=== PATIENT | female | born 1945 | race Caucasian/White ===

== ENCOUNTER 2018-01-14 18:58 | Inpatient (IN) ==
[2018-01-14] MEDS ORDERED: ceFAZolin 2 GM Premix Inj 2 GM/50 ML PIGGYBACK IV.SIG ONE (19:05)
[2018-01-14] MEDS ORDERED: Diphtheria/Tetanus/Pertussis Vaccine Inj 0.5 ML Syringe IM ONE (19:05)
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
[2018-01-14 19:31] LABS: Baso % (Auto) 0.3 % (0.0-2.0); Eos % (Auto) 0.5 % (0.0-4.0); Hematocrit 30.6 % (35.0-46.0); Hemoglobin 10.2 gm/dL (11.6-15.3); Lymph % (Auto) 48.9 % (9.0-44.0); Mean Corpuscular HGB Conc 33.3 % (32.0-36.0); Mean Corpuscular Hemoglobin 32.9 pg (27.0-34.0); Mean Corpuscular Volume 98.8 fL (80.0-100.0); Mean Platelet Volume 9.3 fL (7.0-11.0); Mono # (Auto) 0.4 th/mm3 (0.0-0.9); Neut # (Auto) 3.7 th/mm3 (1.8-7.7); Neut % (Auto) 45.3 % (16.0-70.0); Platelet Count 117 th/mm3 (150-450); White Blood Count 8.2 th/mm3 (4.0-11.0)
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
[2018-01-14] MEDS ORDERED: Sodium Chlor 0.9% Inj 500 ML IV.CONT ONE (19:40)
[2018-01-14] MEDS ORDERED: Normosol-R pH 7.4 Inj 3,000 ML IV.CONT ONE (19:40)
[2018-01-14] MEDS ORDERED: Phenylephrine/NS 1000 MCG/10ML Syringe IV.PUSH ONE (19:40)
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
[2018-01-14 19:50] LABS: Activated Partial Thrombo Time 21.5 sec (24.3-30.1); INR 1.1 Ratio; Prothrombin Time 11.4 sec (9.8-11.6)
--- NOTE | 2018-01-14 19:50 | ED ---
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 (35.0-46.0) % POC Hct (35-46.0) % MCV 93.0 (80.0-100.0) fL MCH 32.5 (27.0-34.0) pg MCHC 35.0 (32.0-36.0) % RDW 14.7 (11.6-17.2) % Plt Count 81 L (150-450) th/mm3 MPV 9.6 (7.0-11.0) fL Prelim Diff (Auto) Slide review pending Neut % (Auto) 80.2 H (16.0-70.0) % Lymph % (Auto) 12.1 (9.0-44.0) % [place] % (Auto) 7.4 (0.0-8.0) % Eos % (Auto) 0.2 (0.0-4.0) % Baso % (Auto) 0.1 (0.0-2.0) % Neut # (Auto) 8.4 H (1.8-7.7) th/mm3 Lymph # (Auto) 1.3 (1.0-4.8) th/mm3 [place] # (Auto) 0.8 (0.0-0.9) th/mm3 Eos # (Auto) 0.0 (0.0-0.4) th/mm3 Baso # (Auto) 0.0 (0.0-0.2) th/mm3 WBC Differential . Diff Scan Auto diff confirmed Seg Neuts % (Manual) (16-70) % Band Neuts % (Manual) (0-6) % Lymphocytes % (Manual) (9-44) % Monocytes % (Manual) (0-8) % Metamyelocytes % (Man) (0-1) % Abs Neuts (Manual) (1.8-7.7) th/mm3 Nucleated RBCs/100 WBC (0-0) /100 WBC Differential Comment . Platelet Estimate Low L (Normal) Platelet Morphology Normal (Normal) PT 11.0 (9.8-11.6) sec INR 1.1 Ratio APTT 24.8 D (24.3-30.1) sec Fibrinogen 214 L (227-377) mg/dL Puncture Site Art line Patient Temperature 98.6 O2 Saturation 96 (90-100) % ABG pH 7.42 (7.380-7.420) ABG pCO2 43 H (38-42) mmHg ABG pO2 110 (61-120) mmHG ABG HCO3 27 H (22-26) mmol/L ABG O2 Content 17.0 (12.0-20.0) Vol % ABG Base Excess 2.7 H (-2-2) mmol/L ABG Methemoglobin 1.2 (0-2) % Hemoglobin 12.5 (12.0-16.0) G/DL Carboxyhemoglobin 1.7 (0-4) % O2 Delivery Device Ventilator Vent Setting 16/400/6peep Inspired O2 40 % Critical Value No POC Sodium (137-144) mmol/L Sodium (136-145) meq/L POC Potassium (3.6-5.0) mmol/L Potassium (3.5-5.1) meq/L POC Chloride (102-111) mmol/L Chloride (98-107) meq/L Carbon Dioxide (21.0-32.0) meq/L Anion Gap (5-15) meq/L POC BUN (5-21) mg/dL BUN (7-18) mg/dL Creatinine (0.50-1.00) mg/dL POC Creatinine (0.6-1.3) mg/dL Estimated GFR (>89) mL/min POC Glucose (68-110) mg/dL Random Glucose (74-106) mg/dL Calcium (8.5-10.1) mg/dL Prot Corrected Calcium (8.5-10.1) mg/dL Total Bilirubin (0.2-1.0) mg/dL AST (15-37) U/L ALT (10-53) U/L Alkaline Phosphatase (45-117) U/L Total Protein (6.4-8.2) g/dL Albumin (3.4-5.0) g/dL Nasal Screen MRSA (PCR) (Negative) Blood Type Antibody Screen MTS Gel Crossmatch Blood Bank Comment Bld Prod Order Comment 01/16/18 01/16/18 Range/Units 05:30 05:38 WBC (4.0-11.0) th/mm3 RBC (4.00-5.30) mil/mm3 Hgb (11.6-15.3) gm/dL POC Hgb (Calc) (11.6-15.3) g/dL Hct (35.0-46.0) % POC Hct (35-46.0) % MCV (80.0-100.0) fL MCH (27.0-34.0) pg MCHC (32.0-36.0) % RDW (11.6-17.2) % Plt Count (150-450) th/mm3 MPV (7.0-11.0) fL Prelim Diff (Auto) Neut % (Auto) (16.0-70.0) % Lymph % (Auto) (9.0-44.0) % [place] % (Auto) (0.0-8.0) % Eos % (Auto) (0.0-4.0) % Baso % (Auto) (0.0-2.0) % Neut # (Auto) (1.8-7.7) th/mm3 Lymph # (Auto) (1.0-4.8) th/mm3 [place] # (Auto) (0.0-0.9) th/mm3 Eos # (Auto) (0.0-0.4) th/mm3 Baso # (Auto) (0.0-0.2) th/mm3 WBC Differential Diff Scan Seg Neuts % (Manual) (16-70) % Band Neuts % (Manual) (0-6) % Lymphocytes % (Manual) (9-44) % Monocytes % (Manual) (0-8) % Metamyelocytes % (Man) (0-1) % Abs Neuts (Manual) (1.8-7.7) th/mm3 Nucleated RBCs/100 WBC (0-0) /100 WBC Differential Comment Platelet Estimate (Normal) Platelet Morphology (Normal) PT (9.8-11.6) sec INR Ratio APTT (24.3-30.1) sec Fibrinogen (227-377) mg/dL Puncture Site Art line Patient Temperature 98.6 O2 Saturation 94 (90-100) % ABG pH 7.45 H (7.380-7.420) ABG pCO2 37 L (38-42) mmHg ABG pO2 79 (61-120) mmHG ABG HCO3 26 (22-26) mmol/L ABG O2 Content 14.2 (12.0-20.0) Vol % ABG Base Excess 1.9 (-2-2) mmol/L ABG Methemoglobin 1.2 (0-2) % Hemoglobin 10.7 L (12.0-16.0) G/DL Carboxyhemoglobin 1.5 (0-4) % O2 Delivery Device Ventilator Vent Setting 16/400/peep 6 Inspired O2 35 % Critical Value No POC Sodium (137-144) mmol/L Sodium 143 (136-145) meq/L POC Potassium (3.6-5.0) mmol/L Potassium 3.2 L (3.5-5.1) meq/L POC Chloride (102-111) mmol/L Chloride 109 H (98-107) meq/L Carbon Dioxide 25.2 (21.0-32.0) meq/L Anion Gap 9 (5-15) meq/L POC BUN (5-21) mg/dL BUN 16 (7-18) mg/dL Creatinine 0.47 L (0.50-1.00) mg/dL POC Creatinine (0.6-1.3) mg/dL Estimated GFR Greater than 89 (>89) mL/min POC Glucose (68-110) mg/dL Random Glucose 109 H (74-106) mg/dL Calcium 7.4 L* (8.5-10.1) mg/dL Prot Corrected Calcium 8.4 L (8.5-10.1) mg/dL Total Bilirubin 1.1 H (0.2-1.0) mg/dL AST 99 H (15-37) U/L ALT 69 H (10-53) U/L Alkaline Phosphatase 51 (45-117) U/L Total Protein 5.3 L D (6.4-8.2) g/dL Albumin 2.5 L D (3.4-5.0) g/dL Nasal Screen MRSA (PCR) (Negative) Blood Type Antibody Screen MTS Gel Crossmatch Blood Bank Comment Bld Prod Order Comment Imaging Data Radiologist's impression: Chest X-Ray 01/14/18 00:00 CONCLUSION: Endotracheal tube and NG tube in good position. Basilar and dependent opacity, probably atelectasis. Left central line overlies right atrium without visible pneumothorax. Chest X-Ray 01/14/18 19:00 CONCLUSION: Suboptimal exam but no acute traumatic injury identified on plain film. Mild basilar atelectasis. Pelvis X-Ray 01/14/18 19:00 CONCLUSION: No acute bony abnormality identified on limited trauma exam. Abdomen/Pelvis CT 01/14/18 19:04 CONCLUSION: 1. Severely fractured spleen with small amount of active extravasation inferiorly. Mild hemoperitoneum. 2. Questionable liver cirrhosis. Multiple gallstones. Multiple liver cysts. 3. No acute bony abnormalities within the abdomen. See chest CT report. Cervical Spine CT 01/14/18 19:04 CONCLUSION: 1. No acute findings on cervical spine CT. Chest CT 01/14/18 19:04 CONCLUSION: 1. Bilateral lower anterior rib fractures with very tiny bilateral pneumothoraces. Minimal dependent atelectasis in the lungs. 2. Positive pericardial effusion as above. Cannot exclude pericardial hemorrhage. No traumatic aortic injury identified. Findings discussed with Dr. Baker. Head CT 01/14/18 19:04 CONCLUSION: 1. No acute intracranial abnormality. Practically interesting trauma surgery service . Chest X-Ray 01/15/18 05:44 CONCLUSION: Mild parenchymal consolidation at the lung bases not significantly changed from last night. Lines and tubes as above. Chest X-Ray 01/16/18 06:00 CONCLUSION: No significant change. Basilar predominant airspace opacities persist. Discharge Plan Discharge Disposition Patient Disposition: 30 Still Patient Discharge Details Diagnosis: Major laceration of spleen Physicians Team ED Provider: Lisa Estrada Primary Care Provider: UNKNOWN, Attending Provider: Arnav Baker Other Providers: Perfecto Collins ; Marko Todd ; [employer] ; Arnav Baker ; Ally Gonzalez F ; Jj Bell S ; Lakeisha Munson ; Sly Carrillo ; Flaquita Nayak Status ED Status: Left Department Discharge Information Discharge Date/Time: 01/14/18 20:32
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
[2018-01-14 20:32] LABS: ABG Base Excess -8.6 mmol/L (-2-2); ABG PCO2 42 mmHg (38-42); ABG PO2 377 mmHG (61-120)
[2018-01-14] MEDS ORDERED: Sodium Bicarbonate 8.4% Inj 50 MEQ/50 ML Syringe ONE ×2 (20:35)
[2018-01-14] MEDS ORDERED: Calcium Chloride Inj 1 GM/10 ML Syringe ONE ×2 (20:35→22:29)
[2018-01-14 20:50] LABS: Baso # (Auto) 0.1 th/mm3 (0.0-0.2); Baso % (Auto) 0.9 % (0.0-2.0); Eos % (Auto) 0.1 % (0.0-4.0); Hematocrit 27.3 % (35.0-46.0); Hemoglobin 9.3 gm/dL (11.6-15.3); Lymph # (Auto) 1.4 th/mm3 (1.0-4.8); Lymph % (Auto) 14.5 % (9.0-44.0); Mean Corpuscular HGB Conc 34.2 % (32.0-36.0); Mean Corpuscular Hemoglobin 32.8 pg (27.0-34.0); Mean Corpuscular Volume 95.9 fL (80.0-100.0); Mean Platelet Volume 9.1 fL (7.0-11.0); Mono # (Auto) 0.4 th/mm3 (0.0-0.9); Mono % (Auto) 3.7 % (0.0-8.0); Neut % (Auto) 80.8 % (16.0-70.0); Platelet Count 70 th/mm3 (150-450); Red Blood Count 2.84 mil/mm3 (4.00-5.30); Red Cell Distribution Width 13.5 % (11.6-17.2)
[2018-01-14 21:05] LABS: Activated Partial Thrombo Time 36.4 sec (24.3-30.1); INR 1.4 Ratio
[2018-01-14 21:23] LABS: Calcium 5.2 mg/dL (8.5-10.1); Carbon Dioxide 21.3 meq/L (21.0-32.0)
[2018-01-14 21:34] LABS: Total Protein 3.6 g/dL (6.4-8.2)
[2018-01-14 21:41] LABS: ABG PCO2 34 mmHg (38-42); ABG PO2 233 mmHG (61-120)
[2018-01-14 21:46] LABS: Hematocrit 33.2 % (35.0-46.0); Hemoglobin 11.6 gm/dL (11.6-15.3); Mean Corpuscular HGB Conc 34.9 % (32.0-36.0); Mean Corpuscular Hemoglobin 33.3 pg (27.0-34.0); Mean Corpuscular Volume 95.2 fL (80.0-100.0); Mean Platelet Volume 8.4 fL (7.0-11.0); Platelet Count 83 th/mm3 (150-450); Red Blood Count 3.49 mil/mm3 (4.00-5.30); Red Cell Distribution Width 14.4 % (11.6-17.2); White Blood Count 8.9 th/mm3 (4.0-11.0)
[2018-01-14] MEDS ORDERED: Acetaminophen 325 MG Tablet PO PRN (22:04)
[2018-01-14] MEDS ORDERED: Post-op Orders (for Pharmacy) OTHER ONE (22:04)
[2018-01-14] MEDS ORDERED: Naloxone Inj 0.4 MG/ML Vial IV.PUSH PRN (22:04)
[2018-01-14] MEDS ORDERED: fentaNYL 10 mcg/mL Premix Drip 2,500 MCG/250 ML BAG IV.SIG PRN (22:06)
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
[2018-01-14] MEDS ORDERED: fentaNYL Citrate Inj 100 MCG/2 ML Ampul ONE (22:29)
[2018-01-14] MEDS ORDERED: Propofol Inj 500 MG/50 ML Vial ONE (22:41)
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
[2018-01-14] MEDS: Propofol 1000 mg/100 ml Inj 1,000 MG/100 ML BOTTLE IV.CONT PRN (22:59)
[2018-01-14] MEDS: Pantoprazole Inj 40 MG Vial IV.PUSH SCH (23:01)
[2018-01-14] MEDS: fentaNYL 10 mcg/mL Premix Drip 2,500 MCG/250 ML BAG IV.SIG PRN (23:02)
[2018-01-14] MEDS: Sod Chloride 0.9% Inj 1,000 ML IV.CONT SCH (23:03)
[2018-01-15 00:06] LABS: ABG Base Excess 0.9 mmol/L (-2-2); ABG PCO2 52 mmHg (38-42); ABG PO2 164 mmHg (61-120)
[2018-01-15 00:10] LABS: Baso % (Auto) 0.3 % (0.0-2.0); Hematocrit 38.4 % (35.0-46.0); Hemoglobin 13.5 gm/dL (11.6-15.3); Lymph # (Auto) 0.8 th/mm3 (1.0-4.8); Lymph % (Auto) 10.3 % (9.0-44.0); Mean Corpuscular HGB Conc 35.1 % (32.0-36.0); Mean Corpuscular Hemoglobin 32.6 pg (27.0-34.0); Mean Corpuscular Volume 92.9 fL (80.0-100.0); Mean Platelet Volume 8.3 fL (7.0-11.0); Mono # (Auto) 0.3 th/mm3 (0.0-0.9); Mono % (Auto) 3.7 % (0.0-8.0); Neut % (Auto) 85.7 % (16.0-70.0); Platelet Count 89 th/mm3 (150-450); Red Blood Count 4.13 mil/mm3 (4.00-5.30); Red Cell Distribution Width 14.8 % (11.6-17.2); White Blood Count 8.1 th/mm3 (4.0-11.0)
[2018-01-15 00:38] LABS: INR 1.1 Ratio; Prothrombin Time 11.5 sec (9.8-11.6)
[2018-01-15 00:44] LABS: Alanine Aminotransferase 109 U/L (10-53); Albumin 3.2 g/dL (3.4-5.0); Alkaline Phosphatase 60 U/L (45-117); Anion Gap 8 meq/L (5-15); Aspartate Aminotransferase 160 U/L (15-37); Blood Urea Nitrogen 20 mg/dL (7-18); Calcium 8.5 mg/dL (8.5-10.1); Carbon Dioxide 27.7 meq/L (21.0-32.0); Chloride 109 meq/L (98-107); Glomerular Filtration Rate 64 mL/min (>89); Glucose,Random 140 mg/dL (74-106); Sodium 145 meq/L (136-145)
[2018-01-15 00:46] LABS: Potassium 3.4 meq/L (3.5-5.1)
[2018-01-15 01:45] LABS: Lymphocytes 8 % (9-44); Metamyelocytes 1 % (0-1); Monocytes 4 % (0-8); Tallied Nucleated RBC 1 (0-0)
[2018-01-15 01:46] LABS: Platelet Morphology Normal (Normal)
[2018-01-15] MEDS: ceFAZolin Inj 1,000 MG in Sodium Chlor 0.9% Inj 100 ML IV.SIG SCH ×2 (04:05→12:41)
[2018-01-15] MEDS ORDERED: Magnesium Oxide 400 MG Tablet PO PRN (05:39)
[2018-01-15] MEDS ORDERED: Sodium Phosphate Inj 30 MMOL in Sodium Chlor 0.9% Inj 250 ML IV.SIG PRN (05:39)
[2018-01-15] MEDS ORDERED: Potassium Phosphate 500 MG Soluble Tablet PO PRN ×2 (05:39)
[2018-01-15] MEDS ORDERED: Magnesium Sulfate Inj 4 GM in Sodium Chlor 0.9% Inj 92 ML IV.SIG PRN (05:39)
[2018-01-15] MEDS ORDERED: Potassium Chlor 20 mEq Premix 20 MEQ/100 ML PIGGYBACK IV.SIG PRN (05:39)
[2018-01-15] MEDS ORDERED: Potassium Chlor 40 mEq Premix 40 MEQ/100 ML PIGGYBACK IV.SIG PRN (05:39)
[2018-01-15] MEDS ORDERED: Magnesium Sulfate Inj 2 GM in Sodium Chlor 0.9% Inj 96 ML IV.SIG PRN (05:39)
[2018-01-15] MEDS ORDERED: Potassium Phosphate Inj 30 MMOL in Sodium Chlor 0.9% Inj 250 ML IV.SIG PRN (05:39)
[2018-01-15 05:53] LABS: Baso % (Auto) 0.1 % (0.0-2.0); Hemoglobin 12.4 gm/dL (11.6-15.3); Lymph # (Auto) 0.6 th/mm3 (1.0-4.8); Lymph % (Auto) 6.9 % (9.0-44.0); Mean Corpuscular HGB Conc 35.3 % (32.0-36.0); Mean Corpuscular Hemoglobin 33.1 pg (27.0-34.0); Mean Corpuscular Volume 93.8 fL (80.0-100.0); Mean Platelet Volume 8.7 fL (7.0-11.0); Mono # (Auto) 0.4 th/mm3 (0.0-0.9); Mono % (Auto) 5.3 % (0.0-8.0); Neut # (Auto) 7.2 th/mm3 (1.8-7.7); Neut % (Auto) 87.7 % (16.0-70.0); Platelet Count 84 th/mm3 (150-450); Red Blood Count 3.74 mil/mm3 (4.00-5.30); Red Cell Distribution Width 14.7 % (11.6-17.2); White Blood Count 8.2 th/mm3 (4.0-11.0)
[2018-01-15 06:03] LABS: Activated Partial Thrombo Time 24.8 sec (24.3-30.1); INR 1.1 Ratio
[2018-01-15 06:12] LABS: ABG Base Excess 2.7 mmol/L (-2-2); ABG PCO2 43 mmHg (38-42); ABG PO2 110 mmHg (61-120)
[2018-01-15 06:23] LABS: Calcium 7.6 mg/dL (8.5-10.1); Carbon Dioxide 28.2 meq/L (21.0-32.0); Potassium 3.5 meq/L (3.5-5.1)
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
[2018-01-15 07:41] LABS: Lymphocytes 8 % (9-44); Monocytes 2 % (0-8)
[2018-01-15 07:42] LABS: Platelet Morphology Normal (Normal)
[2018-01-15] MEDS: Sod Chloride 0.9% Inj 1,000 ML IV.CONT SCH ×2 (08:30→12:38)
[2018-01-15] MEDS: Propofol 1000 mg/100 ml Inj 1,000 MG/100 ML BOTTLE IV.CONT PRN (08:30)
[2018-01-15] MEDS: Chlorhexidine 0.12% Oral Kit 15 ML UDC OROPHARYNG SCH ×2 (08:30→21:24)
[2018-01-15] MEDS ORDERED: [UNRECOGNIZED DRUG - REMARK] OTHER ONE (11:00)
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
[2018-01-15] MEDS: Potassium Chloride 25 MEQ Effervescent Tablet PO PRN (12:37)
[2018-01-15] MEDS: Metoprolol Inj 5 MG/5 ML Vial IV.PUSH SCH ×2 (12:39→17:19)
[2018-01-15] MEDS: Oral Hygiene Kit OROPHARYNG SCH ×2 (12:39→16:04)
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
--- NOTE | 2018-01-15 14:36 | ECG ---
Date Performed: 01/14/2018 Time Performed: 22:24:15 PTAGE: 89 years EKG: SINUS BRADYCARDIA RIGHT BUNDLE BRANCH BLOCK ABNORMAL ECG NO PREVIOUS TRACING DOCTOR: Modesto Faye Interpretating Date/Time 01/15/2018 14:35:25
[2018-01-15] MEDS: fentaNYL 10 mcg/mL Premix Drip 2,500 MCG/250 ML BAG IV.SIG PRN (15:41)
[2018-01-15] MEDS ORDERED: ceFAZolin 1 GM Premix Inj 1 GM/50 ML FROZ.PIGGY IV.SIG SCH (20:00)
[2018-01-15] MEDS: Pantoprazole Inj 40 MG Vial IV.PUSH SCH (22:01)
[2018-01-16] MEDS: Sod Chloride 0.9% Inj 1,000 ML IV.CONT SCH ×2 (01:19→13:35)
[2018-01-16] MEDS: Metoprolol Inj 5 MG/5 ML Vial IV.PUSH SCH ×4 (01:20→18:27)
[2018-01-16] MEDS: Oral Hygiene Kit OROPHARYNG SCH ×4 (01:20→15:45)
[2018-01-16] MEDS: fentaNYL 10 mcg/mL Premix Drip 2,500 MCG/250 ML BAG IV.SIG PRN (02:06)
[2018-01-16 06:00] LABS: Baso % (Auto) 0.1 % (0.0-2.0); Eos % (Auto) 0.2 % (0.0-4.0); Hemoglobin 11.2 gm/dL (11.6-15.3); Lymph # (Auto) 1.3 th/mm3 (1.0-4.8); Lymph % (Auto) 12.1 % (9.0-44.0); Mean Corpuscular Hemoglobin 32.5 pg (27.0-34.0); Mean Platelet Volume 9.6 fL (7.0-11.0); Mono # (Auto) 0.8 th/mm3 (0.0-0.9); Mono % (Auto) 7.4 % (0.0-8.0); Neut # (Auto) 8.4 th/mm3 (1.8-7.7); Neut % (Auto) 80.2 % (16.0-70.0); Platelet Count 81 th/mm3 (150-450); Red Blood Count 3.44 mil/mm3 (4.00-5.30); Red Cell Distribution Width 14.7 % (11.6-17.2); White Blood Count 10.5 th/mm3 (4.0-11.0)
[2018-01-16 06:06] LABS: ABG Base Excess 1.9 mmol/L (-2-2); ABG PCO2 37 mmHg (38-42); ABG PO2 79 mmHg (61-120)
[2018-01-16 06:06] LABS: Alanine Aminotransferase 69 U/L (10-53); Albumin 2.5 g/dL (3.4-5.0); Alkaline Phosphatase 51 U/L (45-117); Anion Gap 9 meq/L (5-15); Aspartate Aminotransferase 99 U/L (15-37); Blood Urea Nitrogen 16 mg/dL (7-18); Calcium 7.4 mg/dL (8.5-10.1); Carbon Dioxide 25.2 meq/L (21.0-32.0); Chloride 109 meq/L (98-107); Glomerular Filtration Rate Greater Than 89 mL/min (>89); Glucose,Random 109 mg/dL (74-106); Potassium 3.2 meq/L (3.5-5.1); Sodium 143 meq/L (136-145); Total Protein 5.3 g/dL (6.4-8.2)
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
[2018-01-16 07:51] LABS: Platelet Morphology Normal (Normal)
[2018-01-16] MEDS: Chlorhexidine 0.12% Oral Kit 15 ML UDC OROPHARYNG SCH ×2 (09:02→20:55)
[2018-01-16] MEDS: Potassium Chlor 40 mEq Premix 40 MEQ/100 ML PIGGYBACK IV.SIG PRN ×2 (10:51→15:44)
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
[2018-01-16] MEDS: Pantoprazole Inj 40 MG Vial IV.PUSH SCH (23:02)
[2018-01-17] MEDS: Metoprolol Inj 5 MG/5 ML Vial IV.PUSH SCH ×4 (00:54→17:10)
[2018-01-17] MEDS: Oral Hygiene Kit OROPHARYNG SCH ×2 (00:55→04:10)
[2018-01-17] MEDS: Sod Chloride 0.9% Inj 1,000 ML IV.CONT SCH ×2 (01:47→12:34)
[2018-01-17 05:14] LABS: Baso # (Auto) 0.1 th/mm3 (0.0-0.2); Baso % (Auto) 0.4 % (0.0-2.0); Eos % (Auto) 0.1 % (0.0-4.0); Hematocrit 30.2 % (35.0-46.0); Hemoglobin 10.3 gm/dL (11.6-15.3); Lymph # (Auto) 0.9 th/mm3 (1.0-4.8); Lymph % (Auto) 6.1 % (9.0-44.0); Mean Corpuscular HGB Conc 34.1 % (32.0-36.0); Mean Corpuscular Volume 93.8 fL (80.0-100.0); Mean Platelet Volume 9.7 fL (7.0-11.0); Mono % (Auto) 6.7 % (0.0-8.0); Neut # (Auto) 12.7 th/mm3 (1.8-7.7); Neut % (Auto) 86.7 % (16.0-70.0); Platelet Count 83 th/mm3 (150-450); Red Blood Count 3.23 mil/mm3 (4.00-5.30); Red Cell Distribution Width 14.5 % (11.6-17.2); White Blood Count 14.6 th/mm3 (4.0-11.0)
[2018-01-17 05:36] LABS: Albumin 2.5 g/dL (3.4-5.0); Anion Gap 7 meq/L (5-15); Aspartate Aminotransferase 83 U/L (15-37); Blood Urea Nitrogen 14 mg/dL (7-18); Calcium 7.6 mg/dL (8.5-10.1); Carbon Dioxide 25.9 meq/L (21.0-32.0); Chloride 108 meq/L (98-107); Glomerular Filtration Rate Greater Than 89 mL/min (>89); Glucose,Random 106 mg/dL (74-106); Potassium 3.5 meq/L (3.5-5.1); Sodium 141 meq/L (136-145)
[2018-01-17 05:39] LABS: Alanine Aminotransferase 63 U/L (10-53); Alkaline Phosphatase 51 U/L (45-117); Total Protein 5.5 g/dL (6.4-8.2)
[2018-01-17] MEDS: Potassium Chloride 25 MEQ Effervescent Tablet PO PRN (05:56)
--- NOTE | 2018-01-17 06:22 | XR ---
EXAM DATE: 01/17/2018 6:06 AM EDT AGE/SEX: 73 years / Female INDICATIONS: Shortness of breath. CLINICAL DATA: This is the patient's subsequent encounter. Patient reports that signs and symptoms h ave been present for 3 days and indicates a pain score of Nonresponsive. MEDICAL/SURGICAL HISTORY: Non-responsive. Non-responsive. [place] [facility] [place]. . FINDINGS: Bibasilar consolidation and small pleural effusions are without significant change. No pneumothorax. Subcentimeter granulomas and calcified hilar lymph nodes again noted on the right. Stable heart size, upper limits of normal. Endotracheal tube tip is approximately 3.5 cm above the christian. There is a nasogastric tube coursing into the stomach. Left subclavian central venous catheter with tip in the right atrium unchanged. CONCLUSION: No significant change. Electronically signed by: Philip Robertson MD 01/17/2018 6:21 AM EDT
[2018-01-17 06:28] LABS: ABG Base Excess -0.3 mmol/L (-2-2); ABG PCO2 35 mmHg (38-42); ABG PO2 133 mmHg (61-120)
[2018-01-17 07:28] LABS: Eosinophils 1 % (0-4); Lymphocytes 3 % (9-44); Monocytes 4 % (0-8); Spherocytes Occ
[2018-01-17 07:29] LABS: Platelet Morphology Normal (Normal)
[2018-01-17] MEDS: Chlorhexidine 0.12% Oral Kit 15 ML UDC OROPHARYNG SCH (09:04)
[2018-01-17] MEDS: Heparin - SQ 10,000 UNITS/ML Vial SQ SCH ×2 (10:10→20:26)
[2018-01-17] MEDS: Senna/Docusate Sodium 8.6/50 MG Tablet PO SCH ×2 (10:11→20:26)
[2018-01-17] MEDS ORDERED: RESP: Racemic Epinephrine 2.25% 0.5 ML Neb NEB PRN (11:00)
[2018-01-17] MEDS: Lidocaine 5% Patch T-DERMAL SCH (12:33)
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
[2018-01-17] MEDS: Pantoprazole Inj 40 MG Vial IV.PUSH SCH (23:48)
[2018-01-18] MEDS: Metoprolol Inj 5 MG/5 ML Vial IV.PUSH SCH ×3 (00:39→12:14)
[2018-01-18 04:19] LABS: Baso % (Auto) 0.2 % (0.0-2.0); Eos % (Auto) 0.2 % (0.0-4.0); Hematocrit 32.6 % (35.0-46.0); Hemoglobin 11.4 gm/dL (11.6-15.3); Lymph # (Auto) 0.8 th/mm3 (1.0-4.8); Lymph % (Auto) 6.4 % (9.0-44.0); Mean Corpuscular HGB Conc 35.1 % (32.0-36.0); Mean Corpuscular Hemoglobin 32.1 pg (27.0-34.0); Mean Corpuscular Volume 91.4 fL (80.0-100.0); Mean Platelet Volume 9.7 fL (7.0-11.0); Mono # (Auto) 0.9 th/mm3 (0.0-0.9); Mono % (Auto) 7.3 % (0.0-8.0); Neut # (Auto) 10.2 th/mm3 (1.8-7.7); Neut % (Auto) 85.9 % (16.0-70.0); Platelet Count 114 th/mm3 (150-450); Red Blood Count 3.57 mil/mm3 (4.00-5.30); Red Cell Distribution Width 14.3 % (11.6-17.2); White Blood Count 11.8 th/mm3 (4.0-11.0)
[2018-01-18 04:44] LABS: Anion Gap 11 meq/L (5-15); Blood Urea Nitrogen 14 mg/dL (7-18); Calcium 8.1 mg/dL (8.5-10.1); Carbon Dioxide 24.8 meq/L (21.0-32.0); Chloride 101 meq/L (98-107); Glomerular Filtration Rate Greater Than 89 mL/min (>89); Glucose,Random 85 mg/dL (74-106); Potassium 3.2 meq/L (3.5-5.1); Sodium 137 meq/L (136-145)
--- NOTE | 2018-01-18 06:11 | XR ---
EXAM DATE: 01/18/2018 5:56 AM EDT AGE/SEX: 73 years / Female INDICATIONS: Shortness of breath CLINICAL DATA: This is the patient's subsequent encounter. Patient reports that signs and symptoms h ave been present for 4 - 6 days and indicates a pain score of 0/10. MEDICAL/SURGICAL HISTORY: None. None. COMPARISON: [facility] – [place], CHEST 1V SINGLE AP, 01/17/2018. . FINDINGS: Left greater than right basilar consolidation and small effusions again noted and not significantly c hanged. No pneumothorax. Heart size stable, within normal limits. Old granulomatous changes are again seen. Patient has been extubated. Nasogastric tube also out. The left subclavian line seen previously has a lso been removed. CONCLUSION: * Mild consolidation and small effusions at each base not significantly changed. * Endotracheal tube, nasogastric tube and left subclavian line have all been removed. Electronically signed by: Philip Robertson MD 01/18/2018 6:10 AM EDT
[2018-01-18] MEDS: Heparin - SQ 10,000 UNITS/ML Vial SQ SCH ×2 (08:31→20:35)
[2018-01-18] MEDS: Potassium Chlor 20 mEq Premix 20 MEQ/100 ML PIGGYBACK IV.SIG PRN ×3 (08:32→12:44)
[2018-01-18] MEDS: Senna/Docusate Sodium 8.6/50 MG Tablet PO SCH ×2 (08:33→20:35)
[2018-01-18] MEDS: Lidocaine 5% Patch T-DERMAL SCH (08:33)
[2018-01-18] MEDS: Sod Chloride 0.9% Inj 1,000 ML IV.CONT SCH (08:35)
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
[2018-01-18 15:08] LABS: Bacteria,Urine Rare /hpf; Bilirubin,Urine Negative (Negative); Clarity,Urine Clear (Clear); Color,Urine Yellow (Yellw/Straw); Glucose,Urine (UA) Negative (Negative); Leukocyte Esterase,Urine Negative (Negative); Nitrite,Urine Negative (Negative); Specific Gravity,Urine 1.012 (1.002-1.035)
[2018-01-18] MEDS: Metoprolol Tartrate 25 MG Tablet PO SCH (20:35)
[2018-01-18] MEDS: Pantoprazole Inj 40 MG Vial IV.PUSH SCH (22:34)
[2018-01-19 06:21] LABS: Anion Gap 9 meq/L (5-15); Blood Urea Nitrogen 20 mg/dL (7-18); Calcium 8.6 mg/dL (8.5-10.1); Carbon Dioxide 27.5 meq/L (21.0-32.0); Chloride 102 meq/L (98-107); Glomerular Filtration Rate Greater Than 89 mL/min (>89); Glucose,Random 120 mg/dL (74-106); Potassium 3.7 meq/L (3.5-5.1); Sodium 138 meq/L (136-145)
[2018-01-19 06:46] LABS: Baso % (Auto) 0.2 % (0.0-2.0); Eos % (Auto) 0.5 % (0.0-4.0); Hematocrit 37.5 % (35.0-46.0); Hemoglobin 12.2 gm/dL (11.6-15.3); Lymph # (Auto) 0.8 th/mm3 (1.0-4.8); Lymph % (Auto) 9.5 % (9.0-44.0); Mean Corpuscular HGB Conc 32.4 % (32.0-36.0); Mean Corpuscular Hemoglobin 32.9 pg (27.0-34.0); Mean Corpuscular Volume 101.6 fL (80.0-100.0); Mean Platelet Volume 9.6 fL (7.0-11.0); Mono # (Auto) 0.8 th/mm3 (0.0-0.9); Mono % (Auto) 9.6 % (0.0-8.0); Neut # (Auto) 6.6 th/mm3 (1.8-7.7); Neut % (Auto) 80.2 % (16.0-70.0); Platelet Count 147 th/mm3 (150-450); Red Blood Count 3.69 mil/mm3 (4.00-5.30); Red Cell Distribution Width 14.9 % (11.6-17.2); White Blood Count 8.2 th/mm3 (4.0-11.0)
[2018-01-19] MEDS: Lidocaine 5% Patch T-DERMAL SCH (09:00)
[2018-01-19] MEDS: Metoprolol Tartrate 25 MG Tablet PO SCH ×2 (09:00→21:00)
[2018-01-19] MEDS: Senna/Docusate Sodium 8.6/50 MG Tablet PO SCH ×2 (09:01→21:00)
[2018-01-19] MEDS: Heparin - SQ 10,000 UNITS/ML Vial SQ SCH ×2 (09:01→20:59)
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
[2018-01-19] MEDS: Pantoprazole Inj 40 MG Vial IV.PUSH SCH (23:28)
[2018-01-20 05:59] LABS: Baso % (Auto) 0.4 % (0.0-2.0); Eos # (Auto) 0.1 th/mm3 (0.0-0.4); Eos % (Auto) 0.9 % (0.0-4.0); Hematocrit 35.6 % (35.0-46.0); Hemoglobin 12.7 gm/dL (11.6-15.3); Lymph # (Auto) 1.4 th/mm3 (1.0-4.8); Lymph % (Auto) 18.1 % (9.0-44.0); Mean Corpuscular HGB Conc 35.6 % (32.0-36.0); Mean Corpuscular Hemoglobin 33.1 pg (27.0-34.0); Mean Platelet Volume 9.8 fL (7.0-11.0); Mono % (Auto) 12.9 % (0.0-8.0); Neut # (Auto) 5.3 th/mm3 (1.8-7.7); Neut % (Auto) 67.7 % (16.0-70.0); Platelet Count 184 th/mm3 (150-450); Red Blood Count 3.83 mil/mm3 (4.00-5.30); Red Cell Distribution Width 13.8 % (11.6-17.2); White Blood Count 7.9 th/mm3 (4.0-11.0)
[2018-01-20 06:09] LABS: Anion Gap 8 meq/L (5-15); Blood Urea Nitrogen 22 mg/dL (7-18); Calcium 8.6 mg/dL (8.5-10.1); Carbon Dioxide 30.2 meq/L (21.0-32.0); Chloride 100 meq/L (98-107); Glomerular Filtration Rate Greater Than 89 mL/min (>89); Glucose,Random 124 mg/dL (74-106); Potassium 3.7 meq/L (3.5-5.1); Sodium 138 meq/L (136-145)
--- NOTE | 2018-01-20 06:35 | P.DCO ---
- Physical Therapy Order: Evaluate and treat, Improve ambulation, Strength and gait training - Home Health Nursing Order: Nursing assessment with vital signs - Case Management Consult Yes - Certification I have seen patient Loree Allen on 01/20/18. My clinical findings support the need for the requested home health care services because: Deconditioned with increased weakness I certify that my clinical findings support that this patient is homebound because: Post-op weakness, Unsteady gait/balance
[2018-01-20 08:25] VITALS: RESP 18
[2018-01-20] MEDS: Lidocaine 5% Patch T-DERMAL SCH (09:07)
[2018-01-20] MEDS: Senna/Docusate Sodium 8.6/50 MG Tablet PO SCH (09:07)
[2018-01-20] MEDS: Heparin - SQ 10,000 UNITS/ML Vial SQ SCH (09:07)
[2018-01-20] MEDS ORDERED: Influenza (Quadrivalent) Vaccine 0.5 ML Syringe IM ONE (10:00)
[2018-01-20] MEDS ORDERED: Pneumococcal-23 Polyvalent Vaccine Inj 25 MCG/0.5 ML Syringe IM ONE (12:00)
[2018-01-20 12:07] LABS: Spherocytes Occ
[2018-01-20 12:12] VITALS: BP 130/64; PULSE 90; TEMP 98.4; O2SAT 93
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
--- NOTE | 2018-02-02 18:08 | MP ---
cc: Arnav Baker MD DATE OF OPERATION: 01/14/2018 PREOPERATIVE DIAGNOSIS: Laceration to the spleen. POSTOPERATIVE DIAGNOSIS: Laceration to the spleen. PROCEDURE PERFORMED: Exploratory laparotomy with splenectomy. SURGEON: Arnav Baker MD ANESTHESIA: General endotracheal anesthesia. ESTIMATED BLOOD LOSS: 1 liter. FINDINGS: Laceration to the spleen with hemoperitoneum. No evidence of bowel injury. SPECIMENS: Spleen. COMPLICATIONS: None. DESCRIPTION OF PROCEDURE: The patient was brought to the operating room, placed on the operating table in supine position. Bilateral sequential inflation devices placed on the lower extremities. General anesthesia instituted. Granados catheter placed. The abdomen was prepped and draped sterilely, after all lines central and A-lines were placed by Anesthesia. A midline incision was then made. It was taken through the subcutaneous tissue. The peritoneal cavity was entered. On entering, there was a hemoperitoneum. The upper abdomen, left upper quadrant, was packed with packing as well as the right upper quadrant. Attention focused in the left upper quadrant. The packing was removed. The spleen was visualized and was brought into the wound. The the short gastric vessels were taken down using the wave ultrasonic device. The splenic vessels were then encountered, they were encircled, they were ligated with 0 silk sutures and divided in between. The remaining splenic attachments were then taken down. The spleen was sent off the field as the specimen. The right upper quadrant was then inspected. No evidence of lacerations to the liver were identified. The pelvis was inspected. The hemoperitoneum and the pelvis was irrigated out. The small bowel was inspected from the ligament of Treitz to the ileocecal valve. The colon was inspected as well. No evidence of bowel injury, no evidence of stomach injury. A SNoW hemostatic device was then left in the hilum of the liver. A 19-Polish Gunnar drain was left in the left upper quadrant. The fascia was then approximated in midline using #1 looped PDS. The wound was irrigated with saline. The skin edges approximated with jake. The abdominal wall was cleaned. Sterile dressings were placed. The patient was taken to the ICU on a ventilator. MD XANDER Bernal/trudy , 05:27 PM , 05:34 PM
== END 2018-01-20 13:32 | disposition home health service (06) ==
LOC: NEPI 18:58 → EDBD 19:40 → NEDA 19:40 → MERGE 19:40 → NEDA 20:32 → N03 20:41 → N06 01-19 16:41
PROVIDERS: ADMIT Surgery; ATTEND Surgery

== ENCOUNTER 2018-01-27 11:55 | Inpatient (IN) ==
[2018-01-27] MEDS ORDERED: Sod Chloride 0.9% Inj 1,000 ML IV.CONT SCH ×2 (13:30→21:45)
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
--- NOTE | 2018-01-27 14:29 | XR ---
EXAM DATE: 01/27/2018 2:18 PM EST AGE/SEX: 73 years / Female INDICATIONS: Chest discomfort. CLINICAL DATA: This is the patient's initial encounter. Patient reports that signs and symptoms have been present for 1 day and indicates a pain score of 7/10. MEDICAL/SURGICAL HISTORY: None. None. COMPARISON: [facility] [place], CHEST 1V SINGLE AP, 01/18/2018. . FINDINGS: Small left pleural effusion persists, not significantly changed. Mild bibasilar atelectasis has impro traci modestly. No pneumothorax seen. Heart size stable, upper limits of normal. Calcified lymph nodes are again seen of the mediastinum an d right hilum. CONCLUSION: 1. Improvement bibasilar atelectasis, currently very mild. 2. Persistent small pleural effusion at the left base without significant change. 3. Heart size stable, upper limits of normal. Electronically signed by: Philip Robertson MD 01/27/2018 2:27 PM EST
[2018-01-27 15:04] LABS: Baso # (Auto) 0.1 th/mm3 (0.0-0.2); Baso % (Auto) 0.5 % (0.0-2.0); Eos # (Auto) 0.2 th/mm3 (0.0-0.4); Eos % (Auto) 1.3 % (0.0-4.0); Hematocrit 37.1 % (35.0-46.0); Hemoglobin 12.6 gm/dL (11.6-15.3); Lymph % (Auto) 5.3 % (9.0-44.0); Mean Corpuscular Hemoglobin 33.3 pg (27.0-34.0); Mean Corpuscular Volume 98.2 fL (80.0-100.0); Mono # (Auto) 1.3 th/mm3 (0.0-0.9); Mono % (Auto) 7.2 % (0.0-8.0); Neut # (Auto) 15.8 th/mm3 (1.8-7.7); Neut % (Auto) 85.7 % (16.0-70.0); Platelet Count 367 th/mm3 (150-450); Red Blood Count 3.78 mil/mm3 (4.00-5.30); Red Cell Distribution Width 15.3 % (11.6-17.2); White Blood Count 18.5 th/mm3 (4.0-11.0)
[2018-01-27 15:19] LABS: Activated Partial Thrombo Time 23.6 sec (23.4-31.7)
[2018-01-27 15:20] LABS: Prothrombin Time 10.6 sec (9.8-11.6)
[2018-01-27 15:32] LABS: Alanine Aminotransferase 37 U/L (10-53); Alkaline Phosphatase 87 U/L (45-117); Anion Gap 11 meq/L (5-15); Aspartate Aminotransferase 42 U/L (15-37); Blood Urea Nitrogen 19 mg/dL (7-18); Calcium 8.5 mg/dL (8.5-10.1); Carbon Dioxide 32.8 meq/L (21.0-32.0); Chloride 96 meq/L (98-107); Glomerular Filtration Rate Greater Than 89 mL/min (>89); Glucose,Random 114 mg/dL (74-106); Lipase 181 U/L (73-393); Magnesium 2.1 mg/dL (1.5-2.5); Potassium 3.8 meq/L (3.5-5.1); Sodium 140 meq/L (136-145); Total Protein 6.8 g/dL (6.4-8.2)
[2018-01-27 15:33] LABS: Creatine Kinase 101 U/L (26-192)
[2018-01-27 15:45] LABS: Creatine Kinase MB 1.6 ng/mL (0.5-3.6)
--- NOTE | 2018-01-27 16:41 | ECG ---
Date Performed: 01/27/2018 Time Performed: 14:03:09 PTAGE: 73 years EKG: Sinus rhythm RIGHT BUNDLE BRANCH BLOCK Right bundle branch block cannot rule out inferior MS ABNORMAL ECG Compare d to prior electrocardiogram, Right bundle branch block and possible inferior MS are present. PREVIOUS TRACING : 09/16/1995 07.02 DOCTOR: Ki Lynne Interpretating Date/Time 01/27/2018 16:40:47
--- NOTE | 2018-01-27 17:45 | CT ---
EXAM DATE: 01/27/2018 5:21 PM EST AGE/SEX: 73 years / Female INDICATIONS: Vomiting dark emesis. CLINICAL DATA: This is the patient's initial encounter. Patient reports that signs and symptoms have been present for 1 day and indicates a pain score of 8/10. MEDICAL/SURGICAL HISTORY: . Lacerated spleen, pneumothorax, pulmonary contusion, pericardial ef fusion. Splenectomy. ORAL CONTRAST: No oral contrast ingested. RADIATION DOSE: 8.95 CTDI (mGy) COMPARISON: [facility] [place] ABDOMEN & PELVIS W CONTRAST, 01/14/2018. . TECHNIQUE: Multiple contiguous axial images were obtained through the abdomen and pelvis following b olus infusion of 89 ml Omnipaque 350 (iohexol) nonionic water-soluble contrast as a cumulative dose for multiple exams. No oral contrast ingested. Using automated exposure control and adjustment of t he mA and/or kV according to patient size, radiation dose was kept as low as reasonably achievable to obtain optimal diagnostic quality images. DICOM format image data is available electronically for r eview and comparison. FINDINGS: Patient is status post splenectomy. There is a 3.8 x 7.3 x 6.0 cm fluid collection in the splenectomy bed. The adjacent stomach is fluid-filled and distended. There is patchy wall thickening of small an d large bowel, mostly the loop/segments within the left side of the abdomen. There is very small free fluid in left pericolic gutter. No free fluid is seen in the pelvic cavity. Trace perihepatic ascites, less than before. Pancreas and adrenal glands are within normal limits. Th ere is a somewhat heterogeneous/striated pattern of enhancement of both kidneys. No hydronephrosis or hydroureter. There is parenchymal consolidation of both lung bases. Also a small to moderate pleural effusion at t he visualized left lung base. Numerous small stones again seen in the gallbladder. No duct stone or ductal dilatation. There are sc attered cysts of the liver. A right ovarian cyst is again noted. CONCLUSION: 1. Interim splenectomy. Gastroenteritis and colitis, primarily left-sided. There is a fluid collecti on in the splenectomy bed which may merely represent a seroma but it seems to be causing some seconda ry inflammatory changes of the adjacent stomach, small and large bowel and I believe with a partial o bstruction at the level of the proximal jejunum. An abscess in the splenectomy bed should be consider ed in the differential. Stomach is distended. 2. Parenchymal consolidation of both lung bases and a small to moderate left pleural effusion, presu mably a diabetic. 3. Heterogeneous and somewhat striated pattern of renal enhancement and can be seen in the setting o f bilateral nephritis and acute tubular necrosis. 4. Small perihepatic ascites similar to the prior study. 5. Hepatic and right ovarian cysts unchanged. Electronically signed by: Philip Robertson MD 01/27/2018 5:44 PM EST
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
[2018-01-27] MEDS ORDERED: Piperacil/Tazo 3.375 GM Premix 50 ML IV.SIG ONE (17:54)
[2018-01-27] MEDS ORDERED: Naloxone Inj 0.4 MG/ML Vial IV.PUSH PRN (21:35)
[2018-01-27] MEDS ORDERED: Promethazine 25 MG Supp RECTAL PRN (21:35)
[2018-01-27] MEDS ORDERED: Post-op Orders (for Pharmacy) OTHER ONE (21:35)
[2018-01-27] MEDS ORDERED: Morphine Sulfate Inj 2 MG/ML Vial IV.PUSH PRN (21:38)
[2018-01-27] MEDS ORDERED: Enoxaparin Inj 40 MG/0.4 ML Syringe SQ ONE (21:38)
[2018-01-27 22:43] LABS: Amorphous Sediment,Urine Rare /hpf; Bacteria,Urine Moderate /hpf; Bilirubin,Urine Negative (Negative); Clarity,Urine Cloudy (Clear); Color,Urine Yellow (Yellw/Straw); Glucose,Urine (UA) Negative (Negative); Leukocyte Esterase,Urine Moderate (Negative); Mucus,Urine Few /lpf (Occasional); Nitrite,Urine Negative (Negative); Squamous Epithelial Cell,Urine 17 /hpf (0-5); Urobilinogen,Urine 4 or Greater mg/dL (Less than 2)
[2018-01-28] MEDS: Pantoprazole Inj 40 MG Vial IV.PUSH SCH ×2 (00:51→21:15)
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
[2018-01-28 08:15] LABS: Baso # (Auto) 0.1 th/mm3 (0.0-0.2); Baso % (Auto) 0.5 % (0.0-2.0); Eos # (Auto) 0.2 th/mm3 (0.0-0.4); Eos % (Auto) 1.8 % (0.0-4.0); Hematocrit 34.7 % (35.0-46.0); Lymph # (Auto) 1.2 th/mm3 (1.0-4.8); Lymph % (Auto) 9.5 % (9.0-44.0); Mean Corpuscular HGB Conc 34.6 % (32.0-36.0); Mean Corpuscular Hemoglobin 33.3 pg (27.0-34.0); Mean Corpuscular Volume 96.3 fL (80.0-100.0); Mono # (Auto) 1.2 th/mm3 (0.0-0.9); Mono % (Auto) 9.4 % (0.0-8.0); Neut # (Auto) 10.2 th/mm3 (1.8-7.7); Neut % (Auto) 78.8 % (16.0-70.0); Platelet Count 371 th/mm3 (150-450); Red Blood Count 3.61 mil/mm3 (4.00-5.30); Red Cell Distribution Width 15.2 % (11.6-17.2); White Blood Count 12.9 th/mm3 (4.0-11.0)
[2018-01-28 08:37] LABS: Anion Gap 11 meq/L (5-15); Blood Urea Nitrogen 15 mg/dL (7-18); Calcium 8.1 mg/dL (8.5-10.1); Carbon Dioxide 29.3 meq/L (21.0-32.0); Chloride 103 meq/L (98-107); Glomerular Filtration Rate Greater Than 89 mL/min (>89); Glucose,Random 101 mg/dL (74-106); Potassium 3.2 meq/L (3.5-5.1); Sodium 143 meq/L (136-145)
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
[2018-01-28] MEDS: Levofloxacin 500 mg Premix Inj 500 MG/100 ML PIGGYBACK IV.SIG SCH (12:36)
[2018-01-28] MEDS: Senna/Docusate Sodium 8.6/50 MG Tablet PO SCH (21:14)
[2018-01-28] MEDS: Metoprolol Tartrate 25 MG Tablet PO SCH (21:15)
[2018-01-28] MEDS: Sodium Chloride 0.9% 2 ML Flush BID IV.FLUSH SCH (21:15)
[2018-01-29 04:30] LABS: Baso % (Auto) 0.1 % (0.0-2.0); Eos # (Auto) 0.2 th/mm3 (0.0-0.4); Eos % (Auto) 1.9 % (0.0-4.0); Hematocrit 36.6 % (35.0-46.0); Hemoglobin 12.3 gm/dL (11.6-15.3); Lymph # (Auto) 0.9 th/mm3 (1.0-4.8); Mean Corpuscular HGB Conc 33.5 % (32.0-36.0); Mean Corpuscular Hemoglobin 32.5 pg (27.0-34.0); Mean Corpuscular Volume 96.9 fL (80.0-100.0); Mean Platelet Volume 8.6 fL (7.0-11.0); Mono # (Auto) 1.2 th/mm3 (0.0-0.9); Neut # (Auto) 8.5 th/mm3 (1.8-7.7); Platelet Count 374 th/mm3 (150-450); Red Blood Count 3.78 mil/mm3 (4.00-5.30); Red Cell Distribution Width 14.8 % (11.6-17.2); White Blood Count 10.7 th/mm3 (4.0-11.0)
[2018-01-29 05:04] LABS: Anion Gap 13 meq/L (5-15); Blood Urea Nitrogen 11 mg/dL (7-18); Calcium 8.1 mg/dL (8.5-10.1); Carbon Dioxide 26.8 meq/L (21.0-32.0); Chloride 102 meq/L (98-107); Glomerular Filtration Rate Greater Than 89 mL/min (>89); Glucose,Random 105 mg/dL (74-106); Sodium 142 meq/L (136-145)
[2018-01-29 05:08] LABS: Potassium 2.9 meq/L (3.5-5.1)
[2018-01-29] MEDS: Potassium Chlor 20 mEq Premix 20 MEQ/100 ML PIGGYBACK IV.SIG SCH ×2 (06:13→08:36)
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
[2018-01-29] MEDS: Senna/Docusate Sodium 8.6/50 MG Tablet PO SCH ×2 (08:37→20:53)
[2018-01-29] MEDS: Enoxaparin Inj 40 MG/0.4 ML Syringe SQ SCH (08:37)
[2018-01-29] MEDS: Sodium Chloride 0.9% 2 ML Flush BID IV.FLUSH SCH ×2 (08:37→20:53)
[2018-01-29] MEDS: Metoprolol Tartrate 25 MG Tablet PO SCH ×2 (08:38→20:47)
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
[2018-01-29] MEDS: Levofloxacin 500 mg Premix Inj 500 MG/100 ML PIGGYBACK IV.SIG SCH (10:39)
[2018-01-29] MEDS: Nitrofurantoin Monohydrate-Macrocrystal 100 MG Capsule PO SCH ×2 (13:20→17:14)
[2018-01-29] MEDS: Pantoprazole Inj 40 MG Vial IV.PUSH SCH ×2 (20:49→21:10)
[2018-01-30 03:49] LABS: Baso % (Auto) 0.2 % (0.0-2.0); Eos # (Auto) 0.2 th/mm3 (0.0-0.4); Eos % (Auto) 2.3 % (0.0-4.0); Hematocrit 37.3 % (35.0-46.0); Hemoglobin 13.2 gm/dL (11.6-15.3); Lymph # (Auto) 1.1 th/mm3 (1.0-4.8); Lymph % (Auto) 11.3 % (9.0-44.0); Mean Corpuscular HGB Conc 35.3 % (32.0-36.0); Mean Corpuscular Hemoglobin 33.5 pg (27.0-34.0); Mean Corpuscular Volume 94.7 fL (80.0-100.0); Mean Platelet Volume 8.9 fL (7.0-11.0); Mono # (Auto) 1.1 th/mm3 (0.0-0.9); Mono % (Auto) 11.2 % (0.0-8.0); Neut # (Auto) 7.6 th/mm3 (1.8-7.7); Platelet Count 392 th/mm3 (150-450); Red Blood Count 3.94 mil/mm3 (4.00-5.30); Red Cell Distribution Width 14.8 % (11.6-17.2); White Blood Count 10.1 th/mm3 (4.0-11.0)
[2018-01-30 04:11] LABS: Anion Gap 12 meq/L (5-15); Blood Urea Nitrogen 9 mg/dL (7-18); Calcium 8.3 mg/dL (8.5-10.1); Carbon Dioxide 27.4 meq/L (21.0-32.0); Chloride 100 meq/L (98-107); Glomerular Filtration Rate Greater Than 89 mL/min (>89); Glucose,Random 123 mg/dL (74-106); Potassium 3.1 meq/L (3.5-5.1); Sodium 139 meq/L (136-145)
[2018-01-30] MEDS: Senna/Docusate Sodium 8.6/50 MG Tablet PO SCH ×2 (09:15→22:14)
[2018-01-30] MEDS: Metoprolol Tartrate 25 MG Tablet PO SCH ×2 (09:16→22:14)
[2018-01-30] MEDS: Enoxaparin Inj 40 MG/0.4 ML Syringe SQ SCH ×2 (09:17→09:18)
[2018-01-30] MEDS: Nitrofurantoin Monohydrate-Macrocrystal 100 MG Capsule PO SCH ×2 (09:17→17:37)
[2018-01-30] MEDS: Levofloxacin 500 mg Premix Inj 500 MG/100 ML PIGGYBACK IV.SIG SCH (09:17)
[2018-01-30] MEDS: Sodium Chloride 0.9% 2 ML Flush BID IV.FLUSH SCH ×2 (09:20→22:15)
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
[2018-01-30 21:03] VITALS: RESP 18
[2018-01-30] MEDS: Pantoprazole Inj 40 MG Vial IV.PUSH SCH (22:13)
[2018-01-31 01:44] VITALS: O2SAT 93
[2018-01-31] MEDS: Senna/Docusate Sodium 8.6/50 MG Tablet PO SCH (08:16)
[2018-01-31] MEDS: Nitrofurantoin Monohydrate-Macrocrystal 100 MG Capsule PO SCH (08:23)
[2018-01-31] MEDS: Metoprolol Tartrate 25 MG Tablet PO SCH (08:23)
[2018-01-31] MEDS: Enoxaparin Inj 40 MG/0.4 ML Syringe SQ SCH (08:23)
[2018-01-31] MEDS: Sodium Chloride 0.9% 2 ML Flush BID IV.FLUSH SCH (08:24)
[2018-01-31 08:35] VITALS: BP 152/69; PULSE 102; TEMP 98.6
[2018-01-31] MEDS: Levofloxacin 500 mg Premix Inj 500 MG/100 ML PIGGYBACK IV.SIG SCH (09:37)
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
[2018-01-31 13:44] LABS: Anion Gap 7 meq/L (5-15); Blood Urea Nitrogen 5 mg/dL (7-18); Calcium 8.9 mg/dL (8.5-10.1); Carbon Dioxide 29.6 meq/L (21.0-32.0); Chloride 99 meq/L (98-107); Glomerular Filtration Rate Greater Than 89 mL/min (>89); Glucose,Random 125 mg/dL (74-106); Potassium 3.9 meq/L (3.5-5.1); Sodium 136 meq/L (136-145)
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
== END 2018-01-31 14:04 | disposition home or self-care (01) ==
LOC: NEPC 11:55 → NEDA 19:18 → N07 23:22
PROVIDERS: ADMIT Surgery; ATTEND Surgery